=== PATIENT | female | born 1960 | race Caucasian/White ===

== ENCOUNTER 2020-02-24 11:00 | Outpatient (REF) | payer BC, SELFPAY ==
--- NOTE | 2020-02-24 15:04 | SKI_PTH ---
PATIENT: FLAKO MOSER LOC: [facility] U#:[id number] AGE/SX: 59/F ROOM: RE02/24/[address]: Fco Banks DO : 1960 BED: DIS: 02/24/2020 SPEC #: [id number] RECD: 02/25/20 12:08 STATUS: JIM REQ #: [id number] TEO: 02/24/20 15:[address]: Fco Banks DEPT: Surgical Specimen RECD BY: Poonam Eldridge ENTERED: 02/25/20 12:09 SP TYPE: TAYLOR BARRON DR: Marc Lux Unknown,Unknown Tissues: 1 - SKIN BIOPSY(SHAVE/PUNCH) 2 - SKIN BIOPSY(SHAVE/PUNCH) Procedures: SKIN LEVEL 4 Comments: [id number]
== END 2020-02-24 11:20 ==
LOC: LBN 11:00
PROVIDERS: Visit Provider Otolaryngology Otolaryngology/Facial Plastic Surgery
DX: C44.1121 Basal cell carcinoma of skin of right upper eyelid, including canthus (principal); D22.39 Melanocytic nevi of other parts of face
CPT/HCPCS: 88305

== ENCOUNTER 2020-03-06 08:47 | Outpatient (CLI) | payer BC, SELFPAY ==
[2020-03-06 23:51] LABS: COVID-19 RT-PCR UVMMC Result Negative (Negative)
== END 2020-03-06 09:07 ==
PROVIDERS: PCP Internal Medicine; Visit Provider Otolaryngology Otolaryngology/Facial Plastic Surgery
DX: Z11.59 Encounter for screening for other viral diseases (principal); Z01.818 Encounter for other preprocedural examination
CPT/HCPCS: U0003

== ENCOUNTER 2020-03-09 06:12 | Day surgery (SDC) | payer BC, SELFPAY ==
[2020-03-09 06:31] VITALS: BP 146/86; PULSE 98; RESP 16; TEMP 36.5; O2SAT 99
[2020-03-09] MEDS: Lactated Ringers 1,000 ML 80 ML IV (07:04)
--- NOTE | 2020-03-09 07:28 | PDOC.DSDIS_ITS ---
Discharge Plan Disposition Patient Disposition: HOME Condition: Good Discharge Details Reason For Visit: OR Attending Provider: Fco Banks Primary Care Provider: Marc Lux [place] Meds and New Rx's Prescriptions: No Action atorvastatin 20 mg tablet 20 mg PO HS RF: 0 diphenhydramine HCl 50 mg Capsule 50 mg PO HS RF: 0 esomeprazole magnesium 20 mg capsule,delayed release(DR/EC) 20 mg PO HS RF: 0 Discharge Instructions Additional Instructions: see sheet Activity:: Activity as Tolerated Remove Dressings/Wound Care:: 24 hours Shower/Bathe:: 24 hours Diet:: As Tolerated DS: Diagnosis Discharge Diagnosis (1) BCC (basal cell carcinoma), face: Status: Acute
--- NOTE | 2020-03-09 07:30 | ROE_ITS ---
Date of service: 03/09/20 Time of Service: 07:30 Operative Note Operative Note DATE OF PROCEDURE: 03/09/20 PRE-OP DIAGNOSIS: BCC face, right lateral canthus POST-OP DIAGNOSIS: same Excision of right lateral canthus, frozen and reconstruction PROCEDURE: Excision of right lateral canthus, frozen section and reconstruction SURGEON: Fco Banks ANESTHESIA: GETA ESTIMATED BLOOD LOSS: 3 PATHOLOGY: other (frozen) COMPLICATIONS: None Patient was transported to: PACU Patient's condition: stable Procedure Description: Pt brought back to the OR, place spine on OR table. Time out taken to confirm proper pt and procedure. 8 cc of 1% lidocaine with 1- 100,000 epinephrine was injected into the right lateral canthus, patient was prepped and draped in normal fashion. Anesthesia was LMA general. 15 blade scalpel was used to excise an elliptical piece paralleling the relaxed skin tension lines of the right lateral canthus measuring 1.9 cm, colored sutures in place for pathological analysis, specimen was sent down for frozen section. Margins were negative. Wide 360 degree undermining was performed in the subcutaneous plane to allow primary closure, I felt this was the best cosmetic outcome, we had planned for a local regional flap however after wide undermining a complex closure this was made possible without undue skin tension or d istortion to the eyelid or brow. Triple layer closure was performed with 3-0 Monocryl, 4-0 Monocryl followed by 4-0 nylon. Bactroban and Band-Aid was placed. Stable to PACU without complications.
[2020-03-09] MEDS: ceFAZolin 2 GM/50 ML BAG IVPB (07:46)
--- NOTE | 2020-03-09 08:00 | SKI_PTH ---
PATIENT: FLAKO MOSER LOC: [facility] U#:[id number] AGE/SX: 59/F ROOM: RE03/09/[address]: Fco Banks DO : 1960 BED: DIS: 03/09/2020 SPEC #: [id number] RECD: 03/09/20 11:03 STATUS: JIM REQ #: [id number] TEO: 03/09/20 08:[address]: Fco Banks DEPT: Surgical Specimen RECD BY: Poonam Eldridge ENTERED: 03/09/20 11:07 SP TYPE: TAYLOR BARRON DR: Marc Lux Tissues: 1 - SKIN BIOPSY(SHAVE/PUNCH) 2 - FROZEN SECTION EXAM Procedures: SKIN LEVEL 4 FROZEN SECTION EXAM Comments: [id number]
--- NOTE | 2020-03-09 08:25 | W.PM.OP ---
Operative Note Operative Note DATE OF PROCEDURE: 03/09/20 POST-OP DIAGNOSIS: same PROCEDURE: Excision of right lateral canthus, frozen section and reconstruction SURGEON: Fco Banks ANESTHESIA: GETA ESTIMATED BLOOD LOSS: 1 PATHOLOGY: other (frozen) Patient was transported to: PACU Patient's condition: stable Implants: Excision of right lateral canthus, frozen section and reconstruction
[2020-03-09 08:45] VITALS: BP 116/69; PULSE 72; RESP 15; TEMP 36.4; O2SAT 95
[2020-03-09 08:50] VITALS: BP 117/66; PULSE 72; RESP 14; TEMP 36.5; O2SAT 98
[2020-03-09 08:55] VITALS: BP 115/67; PULSE 77; RESP 18; TEMP 36.5; O2SAT 98
[2020-03-09 09:50] VITALS: BP 99/66; PULSE 73; RESP 16; TEMP 36.3; O2SAT 93
== END 2020-03-09 10:14 | disposition home or self-care (01) ==
PROVIDERS: PCP Internal Medicine; Visit Provider Otolaryngology Otolaryngology/Facial Plastic Surgery
PROC: (CPT 11642; principal; 2020-03-09 07:30)
DX: C44.319 Basal cell carcinoma of skin of other parts of face (principal); Z85.828 Personal history of other malignant neoplasm of skin
CPT/HCPCS: 11642; 13131; 88305; 88331; J0690; J2001; J2405; J2704; J3010